=== PATIENT | male | born 1995 | race American Indian/Alaskan Native ===

== ENCOUNTER 2017-09-06 16:29 | Emergency (ER) | payer OTHER ==
[2017-09-06] MEDS ORDERED: MOTRIN PO ONE (16:35)
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
[2017-09-06] MEDS ORDERED: NORCO 5/325 ONE (20:33)
[2017-09-06] MEDS ORDERED: NORCO 5/325 PO ONE (20:33)
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
[2017-09-07 00:09] VITALS: BP 118/78
== END 2017-09-06 22:47 | disposition home or self-care (01) ==
LOC: ED 16:29
DX: S06.899A Other specified intracranial injury with loss of consciousness of unspecified duration, initial encounter (principal); J45.909 Unspecified asthma, uncomplicated; F12.10 Cannabis abuse, uncomplicated; F17.200 Nicotine dependence, unspecified, uncomplicated; V49.59XA Passenger injured in collision with other motor vehicles in traffic accident, initial encounter; Y93.89 Activity, other specified; Y92.89 Other specified places as the place of occurrence of the external cause; Y99.8 Other external cause status; Z91.012 Allergy to eggs
CPT/HCPCS: 70450; 72125